=== PATIENT | male | born 1980 | race Caucasian/White ===

== ENCOUNTER 2023-07-12 18:54 | Emergency (ER) | payer BC, SELFPAY ==
[2023-07-12 19:00] VITALS: BP 185/116; PULSE 114; RESP 16; TEMP 36.8; O2SAT 97
--- NOTE | 2023-07-12 19:09 | ECG_ITS ---
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 Measurements Intervals [place] Rate: 102 P: 17 SD: 132 QRS: 109 QRSD: 107 T: 60 QT: 370 QTc: 484 Interpretive Statements SINUS TACHYCARDIA POSSIBLE LEFT ATRIAL ENLARGEMENT [-0.1mV P-WAVE IN V1/V2] RIGHT AXIS DEVIATION [QRS AXIS > 100] INCOMPLETE RIGHT BUNDLE BRANCH BLOCK [90+ ms QRS DURATION, TERMINAL R IN V1/V2, 40+ ms S IN I/aVL/V4/V5/V6] No previous ECG available for comparison Electronically Signed On 07-12-2023 21:47:15 SHIPPING LEAD PERSON by Lexa Mercedes M.D. https://[employer]Catalog Spreesimpson general hospitalInnovegapromedica memorial hospital.[employer]/store/OM/[id number]
[2023-07-12 19:34] LABS: Basophils # 0.1 10^3/uL (0.0-0.1); Basophils % 0.7 %; Eosinophils # 0.1 10^3/uL (0.0-0.8); Eosinophils % 0.6 %; Hematocrit 46.1 % (37-53); Lymphocytes # 3.5 10^3/uL (0.8-4.8); Lymphocytes % 41.4 %; Mean Corpuscular HGB Conc 35.6 g/dL (30-55); Mean Corpuscular Hemoglobin 36.9 pg (27-33); Mean Corpuscular Volume 103.6 fl (82-101); Mean Platelet Volume 10.3 fL (7.4-10.4); Monocytes # 0.7 10^3/uL (0.2-0.9); Monocytes % 8.3 %; Neutrophils # 4.17 10^3/uL (1.8-7.7); Neutrophils % 48.6 %; Nucleated Red Blood Cells % 0 %; Platelet Count 164 10^3/cmm (157-399); Red Blood Count 4.45 10^6/uL (3.85-5.65); Red Cell Distribution Width 11.4 % (12.1-15.1); White Blood Count 8.56 10^3/uL (3.29-11.43)
[2023-07-12 19:44] LABS: Erythrocyte Sedimentation Rate 3 mm/hr (0-10)
[2023-07-12 19:56] LABS: Ketone (Acetest) Serum Negative (Negative)
--- NOTE | 2023-07-12 19:57 | ED_ITS ---
Documented by User: KENNY Hearn 07/13/23 00:10 HPI - Recheck/Abnormal Lab/Rx 2 General: Chief Complaint: Recheck/Abnormal Lab/Rx Stated Complaint: Doc sent high liver enzymes Time Seen by Provider: 07/12/23 19:52 Source: patient and family Mode of arrival: ambulatory Limitations: no limitations History of Present Illness: Patient presents emergency department today for evaluation treatment of concerns for abnormal labs. Patient was seen and evaluated 2 days ago by his primary care doctor with concerns of numbness developing in his toes and fingers. Patient's indicates the patient has not been to a normal doctor in approximately 20 years but, with the development of tingling and numbness, decided to be seen. The primary care doctor obtain labs which the has copies of these labs with her today. Patient had a fasting glucose around 400. He had some elevations in his LFTs as well. There was concerns that his creatinine was low also. Patient reports a significant past history of heavy drinking. Patient reports that about a year ago he cut back his drinking significantly but, still has approximately 4 shots of whiskey daily. Patient is complaining of no pain. He has no abdominal pains and has not had any vomiting. He has had loose stools but reports that has been for quite a while. Patient was also found to have some elevated blood pressure readings at the doctor's office 2 days ago and has elevated blood pressure readings here as well. Patient's states he has amlodipine for his blood pressure from the doctor but, has not taken any. Patient denies chest pains or shortness of breath. He denies headaches, dizziness, or blurry vision. Patient states he is completely asymptomatic other than the tingling in his extremities. Patient reports he stays well-hydrated but has not noticed any increase in his thirst. Patient reports urinating about 4 times a day on average. He does have a significant family history of heart disease and diabetes. Patient is a smoker. Review of Systems 2 General: Reports: 10 or more systems reviewed and unremarkable except in HPI and below Physical Exam 2 Const: COMMON NORMALS: no acute distress, average body habitus, patient oriented x3 and alert HENMT: COMMON NORMALS: normocephalic, atraumatic, hearing grossly normal bilaterally and moist oral mucous membranes HEAD & SCALP: normocephalic and atraumatic Eye: COMMON NORMALS: Equal, round and reactive pupils present, EOMs intact bilaterally and conjunctivae normal CONJUNCTIVA: Yes conjunctivae normal P UPIL: Yes Equal, round and reactive pupils present Neck/C-Spine: COMMON NORMALS: no JVD Lymph: LYMPHATIC: no lymphadenopathy noted Resp: COMMON NORMALS: normal respiratory effort, No retractions and No use of accessory muscles Cardio: COMMON NORMALS: no JVD, regular rate and regular rhythm RATE: r egular rate RHYTHM: regular rhythm GI: OTHER: Normoactive bowel sounds throughout. Patient is nontender to palpation. Abdomen is soft. No epigastric tenderness or right upper quadrant pain. Sanabria's negative. Extremity: COMMON NORMALS: normal to inspection, full ROM and capillary refill normal Neuro: COMMON NORMALS: patient oriented x3 SENSORIUM/ORIENTATION: Yes alert Psych: COMMON NORMALS: mental status grossly normal, cooperative, normal affect, speech normal and activity/motor behavior normal SPEECH: Yes normal speech Skin: NARRATIVE SKIN EXAM: No signs of rash or jaundice. Course 2 Vital Signs: Vital signs: Vital Signs Temperature 98.3 F 07/12/23 19:00 Pulse Rate 94 07/12/23 23:28 Respiratory Rate 16 07/12/23 23:28 Blood Pressure 175/112 07/12/23 20:43 Pulse Oximetry 96 07/12/23 23:28 MDM - Recheck/Abnormal Lab/Rx Medical Decision Making Patient presents to the ER today with concerns of abnormal labs from his primary care office visit 2 days ago. Patient originally presented due to concerns for tingling and numbness in his toes and fingers. I was able to view the patient's labs from 48 hours ago where he was found to have a significantly elevated fasting blood glucose. He did have slightly elevated LFTs at the time but was not overly impressed. No signs of elevated white blood cell count or abnormal hemoglobin. Kidney function did show slightly decreased creatinine from normal but a GFR within normal limits. Repeat labs today showed relatively normal LFTs continued slight decrease in creatinine and elevated GFR. No elevated white blood cell count. Given the patient had significantly elevated blood sugars, I did check a serum ketones which was negative. He did have elevated blood sugars here today but urinalysis revealed only 1+ glucose and negative ketones. Patient's venous blood gas showed blood slightly basic versus ascitic. Patient's alcohol level is less than 10 mg/dL and urine drug screen was negative. Given that I find no specific issues with the patient's pancreas or gallbladder, we did opt to image the abdomen with a CT scan rather than ultrasound. However, CT examination revealed no acute concerns. I did notice that the patient's distal vasculature showed some atherosclerotic disease developed. I did mention this to the patient and his . I asked Dr. Iqbal to reevaluate the patient's lab work and imaging from his ER evaluation today as the overall picture of concerns for a ketoacidotic state or significant diabetic picture are not obvious in his evaluation. Dr. Iqbal agreed that patient has some various unobscured findings and his evaluation today given his reported history and lack of overall symptoms. Still, there appears to be nothing emergent at this time requiring inpatient admission or acute treatment at this time. Dr. Iqbal did mention starting metformin as the patient's A1c was greater than 9. I discussed with the patient and the importance of starting the blood pressure medicine he was already given and the recommendation to try metformin. He indicated he was willing to try but, patient did receive IV contrast here in the emergency department today so patient should not take his first dose until Saturday. He is instructed to call his primary care doctor first thing on Saturday to get a follow-up appointment to discuss his evaluation, lab work, imaging from today. However, patient was given strict return precautions to return to the ER for any new onset vomiting, black or tarry stools, new onset abdominal pain, fevers, diaphoresis, or shaking. Patient verbalized understanding and agreement to treatment plan. Differential Diagnosis Unlikely encounter for medication refill, encounter for wound recheck, encounter for recheck of burn, encounter for removal of sutures or warfarin-induced coagulopathy Lab Data 07/12/23 19:27 07/12/23 19:27 Radiology Impressions Abdomen/Pelvis CT 07/12/23 20:46 IMPRESSION: 1. No bowel obstruction or inflammatory process associated with the bowel. 2. No free air or significant free fluid in the abdomen or pelvis. 3. The appendix images normally. Laboratory Results WBC 8.56 10^3/uL (3.29-11.43) 07/12/23 19: RBC 4.45 10^6/uL (3.85-5.65) 07/12/23 19:27 Hgb 16.40 g/dL (11.27-16.99) 07/12/23 19: Hct 46.1 % (37-53) 07/12/23: MCV 103.6 fl (82-101) H 07/12/23 19: MCH 36.9 pg (27-33) H 07/12/23: MCHC 35.6 g/dL (30-55) 07/12/23: RDW 11.4 % (12.1-15.1) L 07/12/23: Plt Count 164 10^3/cmm (157-399) 07/12/23: MPV 10.3 fL (7.4-10.4) 07/12/23: Neut % (Auto) 48.6 % 07/12/23: Lymph % (Auto) 41.4 % 07/12/23: [place] % (Auto) 8.3 % 07/12/23: Eos % (Auto) 0.6 % 07/12/23: Baso % (Auto) 0.7 % 07/12/23: Neut # (Auto) 4.17 10^3/uL (1.8-7.7) 07/12/23: Lymph # (Auto) 3.5 10^3/uL (0.8-4.8) 07/12/23: [place] # (Auto) 0.7 10^3/uL (0.2-0.9) 07/12/23: Eos # (Auto) 0.1 10^3/uL (0.0-0.8) 07/12/23: Baso # (Auto) 0.1 10^3/uL (0.0-0.1) 07/12/23: Nucleated RBC % (auto) 0 % 07/12/23: Nucleated RBCs # 0.0 /100WBC 07/12/23: ESR 3 mm/hr (0-10) 07/12/23 19: Specimen Type Venous 07/12/23 21:07 Sample Site Not specified 07/12/23 21:07 Morteza Test N/a 07/12/23 21:07 VBG pH 7.52 (7.32-7.42) H 07/12/23 21:07 VBG pCO2 33.7 mmHg (41-51) L 07/12/23 21:07 VBG pO2 32.2 mmHg (25-40) 07/12/23 21:07 VBG HCO3 27.5 mmol/L (24-28) 07/12/23 21:07 VBG Base Excess 5.1 mmol/L (-3.0-3.0) H 07/12/23 21:07 VBG Hematocrit 53.3 % (42-52) H 07/12/23 21:07 O2 Delivery Device None 07/12/23 21:07 FiO2 21.0 % 07/12/23 21:07 Base Brander ID [email or web address] 07/12/23 21:07 Sodium 130 mmol/L (136-145) L 07/12/23 19:27 Potassium 3.4 mmol/L (3.5-5.1) L 07/12/23 19:27 Chloride 88 mmol/L (98-107) L 07/12/23 19:27 Carbon Dioxide 30 mmol/L (22-29) H 07/12/23 19:27 Anion Gap 15.4 (5-19) 07/12/23 19:27 BUN 3 mg/dL (6-20) L 07/12/23 19:27 Creatinine 0.6 mg/dL (0.7-1.2) L 07/12/23 19:27 GFR Calculation 147.0 mL/min (90-130) H 07/12/23 19:27 Glucose 309 mg/dL (65-115) H 07/12/23 19:27 Estimat Average Glucose 226 07/12/23 19:27 Hemoglobin A1c 9.5 % (4.0-6.0) H 07/12/23 19:27 Calculated Osmolality 278 mOsm/kg (285-295) L 07/12/23 19: Calcium 9.2 mg/dL (8.5-10.5) 07/12/23 19: Total Bilirubin 0.8 mg/dL (0.15-1.2) 07/12/23 19:27 AST 44 U/L (0-40) H 07/12/23 19:27 ALT 33 U/L (0-41) 07/12/23 19:27 Alkaline Phosphatase 116 U/L (40-130) 07/12/23 19:27 C-Reactive Protein 3.4 mg/L (0.0-4.9) 07/12/23 19: Total Protein 7.1 g/dL (6.6-8.7) 07/12/23 19: Albumin 4.1 g/dL (3.5-5.2) 07/12/23 19: Globulin 3.0 g/dL (1.3-4.6) 07/12/23 19: Lipase 16 U/L (13-60) 07/12/23 19: TSH 2.11 uIU/mL (0.27-4.20) 07/12/23 19: Urine Color Yellow (Yellow) 07/12/23 22:09 Urine Appearance Clear (CLEAR) 07/12/23 22:09 Urine pH 7 (5-7) 07/12/23 22:09 Ur Specific [place] 1.000 (1.005-1.030) L 07/12/23 22:09 Urine Protein Trace (Negative) 07/12/23 22:09 Urine Glucose (UA) 1+ (Normal) H 07/12/23 22:09 Urine Ketones Negative (Negative) 07/12/23 22:09 Urine Blood Neg (Negative) 07/12/23 22:09 Urine Nitrate Negative (Negative) 07/12/23 22:09 Urine Bilirubin Neg (Negative) 07/12/23 22:09 Urine Urobilinogen Norm mg/dL (Negative) 07/12/23 22:09 Ur Leukocyte Esterase Negative (Negative) 07/12/23 22:09 Urine RBC 0-4 /hpf (0-2) H 07/12/23 22:09 Urine WBC 0-4 /hpf (0-5) H 07/12/23 22:09 Ur Squamous Epith Cells 0-4 /hpf (0-5) H 07/12/23 22:09 Amorphous Sediment Not Reportable 07/12/23 22:09 Urine Bacteria Trace /hpf (NONE) 07/12/23 22:09 Urine Opiates Screen Negative ng/mL (Negative) 07/12/23 22:09 Ur Barbiturates Screen Negative ng/mL (Negative) 07/12/23 22:09 Ur Phencyclidine Scrn Negative ng/mL (Negative) 07/12/23 22:09 Ur Amphetamines Screen Negative ng/mL (Negative) 07/12/23 22:09 U Benzodiazepines Scrn Negative ng/mL (Negative) 07/12/23 22:09 Urine Cocaine Screen Negative ng/mL (Negative) 07/12/23 22:09 U Marijuana (THC) Screen Negative ng/mL (Negative) 07/12/23 22:09 Ethyl Alcohol < 10 mg/dL (0-10) 07/12/23 19:27 Serum Ketones Negative (Negative) 07/12/23 19:27 All radiology interpretation(s) finalized by discharge Discharge Plan Discharge Patient Disposition: Home Clinical Impression: Elevated hemoglobin A1c, Blood glucose elevated Condition: Stable Prescriptions: New metformin 850 mg tablet 850 mg PO DAILY Qty: 14 0RF Discharge Orders: Discharge ED (Routine); Ordered 07/12/23 Ordered By: Maral Campoverde Discharge Diet: Diabetic Discharge Activity: Increase activity as tolerated Patient Instructions: Diabetes and Diet, Type 1 Diabetes in Adults: New Diagnosis (DC), Type 2 Diabetes in Adults: New Diagnosis (DC), Diabetic Neuropathy (ED), Diabetic Hyperglycemia (ED) Activity Restrictions/Additional Instructions: Evaluation today reveals many different things. You do have elevated blood sugar readings but, your urinalysis only shows 1+ glucose and no ketones. Your serum ketones were negative as well. Your liver function tests were almost totally normal and your blood pH is actually more basic than it is acidic. We were going to start you on metformin this evening however, you received IV contrast for your abdominal scan so we recommend starting metformin on Saturday. I have provided you information regarding diabetes and diet, hypoglycemia, neuropathy, and both type I and type 2 diabetes. You need to have follow-up with your primary care doctor soon as possible to continue with the discussion on controlling your blood sugars. If you begin having severe diarrhea, vomiting, fever, abdominal pains, dizziness, episodes of sweating, shaking, or syncope you need to return to the emergency department. Coding Level of Care Code ED Stock Taker for Chg Fwd Documented by User: Ignacio Iqbal, DO 07/13/23 05:53 HPI - Recheck/Abnormal Lab/Rx 2 General: Chief Complaint: Recheck/Abnormal Lab/Rx Stated Complaint: Doc sent high liver enzymes Time Seen by Provider: 07/12/23 19:52 Course 2 Vital Signs: Vital signs: Vital Signs Temperature 98.3 F 07/12/23 19:00 Pulse Rate 94 07/12/23 23:28 Respiratory Rate 16 07/12/23 23:28 Blood Pressure 175/112 07/12/23 20:43 Pulse Oximetry 96 07/12/23 23:28 MDM - Recheck/Abnormal Lab/Rx Medical Decision Making Patient presents to the ER today with concerns of abnormal labs from his primary care office visit 2 days ago. Patient originally presented due to concerns for tingling and numbness in his toes and fingers. I was able to view the patient's labs from 48 hours ago where he was found to have a significantly elevated fasting blood glucose. He did have slightly elevated LFTs at the time but was not overly impressed. No signs of elevated white blood cell count or abnormal hemoglobin. Kidney function did show slightly decreased creatinine from normal but a GFR within normal limits. Repeat labs today showed relatively normal LFTs continued slight decrease in creatinine and elevated GFR. No elevated white blood cell count. Given the patient had significantly elevated blood sugars, I did check a serum ketones which was negative. He did have elevated blood sugars here today but urinalysis revealed only 1+ glucose and negative ketones. Patient's venous blood gas showed blood slightly basic versus ascitic. Patient's alcohol level is less than 10 mg/dL and urine drug screen was negative. Given that I find no specific issues with the patient's pancreas or gallbladder, we did opt to image the abdomen with a CT scan rather than ultrasound. However, CT examination revealed no acute concerns. I did notice that the patient's distal vasculature showed some atherosclerotic disease developed. I did mention this to the patient and his . I asked Dr. Iqbal to reevaluate the patient's lab work and imaging from his ER evaluation today as the overall picture of concerns for a ketoacidotic state or significant diabetic picture are not obvious in his evaluation. Dr. Iqbal agreed that patient has some various unobscured findings and his evaluation today given his reported history and lack of overall symptoms. Still, there appears to be nothing emergent at this time requiring inpatient admission or acute treatment at this time. Dr. Iqbal did mention starting metformin as the patient's A1c was greater than 9. I discussed with the patient and the importance of starting the blood pressure medicine he was already given and the recommendation to try metformin. He indicated he was willing to try but, patient did receive IV contrast here in the emergency department today so patient should not take his first dose until Saturday. He is instructed to call his primary care doctor first thing on Saturday to get a follow-up appointment to discuss his evaluation, lab work, imaging from today. However, patient was given strict return precautions to return to the ER for any new onset vomiting, black or tarry stools, new onset abdominal pain, fevers, diaphoresis, or shaking. Patient verbalized understanding and agreement to treatment plan. This patient was originally seen by Mrs. Gilles PA-C.? I agree with her history, evaluation, and treatment. Lab Data 07/12/23 19:07/12/23 19: Radiology Impressions Abdomen/Pelvis CT 07/12/23 20:46 IMPRESSION: 1. No bowel obstruction or inflammatory process associated with the bowel. 2. No free air or significant free fluid in the abdomen or pelvis. 3. The appendix images normally. Laboratory Results WBC 8.56 10^3/uL (3.29-11.43) 07/12/23: RBC 4.45 10^6/uL (3.85-5.65) 07/12/23 19: Hgb 16.40 g/dL (11.27-16.99) 07/12/23: Hct 46.1 % (37-53) 07/12/23: MCV 103.6 fl (82-101) H 07/12/23: MCH 36.9 pg (27-33) H 07/12/23: MCHC 35.6 g/dL (30-55) 07/12/23: RDW 11.4 % (12.1-15.1) L 07/12/23: Plt Count 164 10^3/cmm (157-399) 07/12/23: MPV 10.3 fL (7.4-10.4) 07/12/23: Neut % (Auto) 48.6 % 07/12/23 19:27 Lymph % (Auto) 41.4 % 07/12/23 19:27 [place] % (Auto) 8.3 % 07/12/23 19:27 Eos % (Auto) 0.6 % 07/12/23 19:27 Baso % (Auto) 0.7 % 07/12/23 19:27 Neut # (Auto) 4.17 10^3/uL (1.8-7.7) 07/12/23 19:27 Lymph # (Auto) 3.5 10^3/uL (0.8-4.8) 07/12/23 19:27 [place] # (Auto) 0.7 10^3/uL (0.2-0.9) 07/12/23 19: Eos # (Auto) 0.1 10^3/uL (0.0-0.8) 07/12/23 19: Baso # (Auto) 0.1 10^3/uL (0.0-0.1) 07/12/23 19: Nucleated RBC % (auto) 0 % 07/12/23 19: Nucleated RBCs # 0.0 /100WBC 07/12/23 19: ESR 3 mm/hr (0-10) 07/12/23 19: Specimen Type Venous 07/12/23 21:07 Sample Site Not specified 07/12/23 21:07 Morteza Test N/a 07/12/23 21:07 VBG pH 7.52 (7.32-7.42) H 07/12/23 21:07 VBG pCO2 33.7 mmHg (41-51) L 07/12/23 21:07 VBG pO2 32.2 mmHg (25-40) 07/12/23 21:07 VBG HCO3 27.5 mmol/L (24-28) 07/12/23 21:07 VBG Base Excess 5.1 mmol/L (-3.0-3.0) H 07/12/23 21:07 VBG Hematocrit 53.3 % (42-52) H 07/12/23 21:07 O2 Delivery Device None 07/12/23 21:07 FiO2 21.0 % 07/12/23 21:07 Base Brander ID [email or web address] 07/12/23 21:07 Sodium 130 mmol/L (136-145) L 07/12/23 19: Potassium 3.4 mmol/L (3.5-5.1) L 07/12/23 19: Chloride 88 mmol/L (98-107) L 07/12/23 19: Carbon Dioxide 30 mmol/L (22-29) H 07/12/23 19: Anion Gap 15.4 (5-19) 07/12/23 19: BUN 3 mg/dL (6-20) L 07/12/23 19: Creatinine 0.6 mg/dL (0.7-1.2) L 07/12/23 19: GFR Calculation 147.0 mL/min (90-130) H 07/12/23: Glucose 309 mg/dL (65-115) H 07/12/23: Estimat Average Glucose 226 07/12/23 19: Hemoglobin A1c 9.5 % (4.0-6.0) H 07/12/23: Calculated Osmolality 278 mOsm/kg (285-295) L 07/12/23 19: Calcium 9.2 mg/dL (8.5-10.5) 07/12/23: Total Bilirubin 0.8 mg/dL (0.15-1.2) 07/12/23: AST 44 U/L (0-40) H 07/12/23 19: ALT 33 U/L (0-41) 07/12/23 19: Alkaline Phosphatase 116 U/L (40-130) 07/12/23 19: C-Reactive Protein 3.4 mg/L (0.0-4.9) 07/12/23 19: Total Protein 7.1 g/dL (6.6-8.7) 07/12/23: Albumin 4.1 g/dL (3.5-5.2) 07/12/23 19: Globulin 3.0 g/dL (1.3-4.6) 07/12/23 19: Lipase 16 U/L (13-60) 07/12/23 19: TSH 2.11 uIU/mL (0.27-4.20) 07/12/23 19: Urine Color Yellow (Yellow) 07/12/23 22:09 Urine Appearance Clear (CLEAR) 07/12/23 22:09 Urine pH 7 (5-7) 07/12/23 22:09 Ur Specific [place] 1.000 (1.005-1.030) L 07/12/23 22:09 Urine Protein Trace (Negative) 07/12/23 22:09 Urine Glucose (UA) 1+ (Normal) H 07/12/23 22:09 Urine Ketones Negative (Negative) 07/12/23 22:09 Urine Blood Neg (Negative) 07/12/23 22:09 Urine Nitrate Negative (Negative) 07/12/23 22:09 Urine Bilirubin Neg (Negative) 07/12/23 22:09 Urine Urobilinogen Norm mg/dL (Negative) 07/12/23 22:09 Ur Leukocyte Esterase Negative (Negative) 07/12/23 22:09 Urine RBC 0-4 /hpf (0-2) H 07/12/23 22:09 Urine WBC 0-4 /hpf (0-5) H 07/12/23 22:09 Ur Squamous Epith Cells 0-4 /hpf (0-5) H 07/12/23 22:09 Amorphous Sediment Not Reportable 07/12/23 22:09 Urine Bacteria Trace /hpf (NONE) 07/12/23 22:09 Urine Opiates Screen Negative ng/mL (Negative) 07/12/23 22:09 Ur Barbiturates Screen Negative ng/mL (Negative) 07/12/23 22:09 Ur Phencyclidine Scrn Negative ng/mL (Negative) 07/12/23 22:09 Ur Amphetamines Screen Negative ng/mL (Negative) 07/12/23 22:09 U Benzodiazepines Scrn Negative ng/mL (Negative) 07/12/23 22:09 Urine Cocaine Screen Negative ng/mL (Negative) 07/12/23 22:09 U Marijuana (THC) Screen Negative ng/mL (Negative) 07/12/23 22:09 Ethyl Alcohol < 10 mg/dL (0-10) 07/12/23 19:27 Serum Ketones Negative (Negative) 07/12/23 19:27 Discharge Plan Discharge Patient Disposition: Home Clinical Impression: Elevated hemoglobin A1c, Blood glucose elevated Condition: Stable Prescriptions: New metformin 850 mg tablet 850 mg PO DAILY Qty: 14 0RF Discharge Orders: Discharge ED (Routine); Ordered 07/12/23 Ordered By: Maral Campoverde Discharge Diet: Diabetic Discharge Activity: Increase activity as tolerated Patient Instructions: Diabetes and Diet, Type 1 Diabetes in Adults: New Diagnosis (DC), Type 2 Diabetes in Adults: New Diagnosis (DC), Diabetic Neuropathy (ED), Diabetic Hyperglycemia (ED) Activity Restrictions/Additional Instructions: Evaluation today reveals many different things. You do have elevated blood sugar readings but, your urinalysis only shows 1+ glucose and no ketones. Your serum ketones were negative as well. Your liver function tests were almost totally normal and your blood pH is actually more basic than it is acidic. We were going to start you on metformin this evening however, you received IV contrast for your abdominal scan so we recommend starting metformin on Saturday. I have provided you information regarding diabetes and diet, hypoglycemia, neuropathy, and both type I and type 2 diabetes. You need to have follow-up with your primary care doctor soon as possible to continue with the discussion on controlling your blood sugars. If you begin having severe diarrhea, vomiting, fever, abdominal pains, dizziness, episodes of sweating, shaking, or syncope you need to return to the emergency department. Coding Level of Care Code ED Stock Taker for Nika Ovalles
[2023-07-12 20:05] LABS: Alanine Aminotransferase 33 U/L (0-41); Albumin Level 4.1 g/dL (3.5-5.2); Alkaline Phosphatase 116 U/L (40-130); Anion Gap 15.4 (5-19); Aspartate Amino Transferase 44 U/L (0-40); Blood Urea Nitrogen 3 mg/dL (6-20); C Reactive Protein 3.4 mg/L (0.0-4.9); Calcium 9.2 mg/dL (8.5-10.5); Carbon Dioxide 30 mmol/L (22-29); Chloride 88 mmol/L (98-107); Glucose 309 mg/dL (65-115); Lipase 16 U/L (13-60); Osmolality Calculated 278 mOsm/kg (285-295); Potassium 3.4 mmol/L (3.5-5.1); Sodium 130 mmol/L (136-145); Thyroid Stimulating Hormone 2.11 uIU/mL (0.27-4.20); Total Bilirubin 0.8 mg/dL (0.15-1.2); Total Protein 7.1 g/dL (6.6-8.7)
[2023-07-12 20:11] LABS: Alcohol Level < 10 mg/dL (0-10)
[2023-07-12 20:43] VITALS: BP 175/112; PULSE 103; RESP 16; O2SAT 96
--- NOTE | 2023-07-12 20:46 | CTR_ITS ---
PROCEDURE INFORMATION: Exam: CT Abdomen And Pelvis With Contrast Exam date and time: 07/12/2023 9:05 PM Age: 43 years old Clinical indication: Abnormal findings; Abnormal lab test; Patient HX: Elevated liver enzymes. ; Additional info: High fasting blood sugars, lipase, lfts and ketones wnl TECHNIQUE: Imaging protocol: Computed tomography of the abdomen and pelvis with contrast. Radiation optimization: All CT scans at this facility use at least one of these dose optimization techniques: automated exposure control; mA and/or kV adjustment per patient size (includes targeted exams where dose is matched to clinical indication); or iterative reconstruction. Contrast material: OMNI 350; Contrast volume: 100 ml; Contrast route: INTRAVENOUS (IV); COMPARISON: No relevant prior studies available. RADIATION DOSE METRICS: Total DLP (mGy-cm): 424.5 FINDINGS: Liver: Normal. No mass. Gallbladder and bile ducts: Normal. No calcified stones. No ductal dilation. Pancreas: Normal. No ductal dilation. Spleen: Normal. No splenomegaly. Adrenal glands: Normal. No mass. Kidneys and ureters: Normal. No hydronephrosis. Stomach and bowel: Unremarkable. No obstruction. No mucosal thickening. Appendix: No evidence of appendicitis. Intraperitoneal space: Unremarkable. No free air. No significant fluid collection. Vasculature: Severe atherosclerotic disease abdominal aorta and proximal iliac arteries. Bilateral pars defects at L5 with grade 2 anterolisthesis of L5 on S1. Lymph nodes: Unremarkable. No enlarged lymph nodes. Urinary bladder: Unremarkable as visualized. Reproductive: Unremarkable as visualized. Bones/joints: See Vasculature finding. Soft tissues: Unremarkable. CT/CT abdomen pelvis w con* [id number] IMPRESSION: 1. No bowel obstruction or inflammatory process associated with the bowel. 2. No free air or significant free fluid in the abdomen or pelvis. 3. The appendix images normally.
[2023-07-12] MEDS: iohexol 350 mg/mL 500 mL Btl (per mL) IV (21:07)
[2023-07-12 21:19] LABS: Base Excess VBG 5.1 mmol/L (-3.0-3.0); Blood Gas Sample Site Not specified; Blood Gas Sample Type Venous; HCO3 VBG 27.5 mmol/L (24-28); PCO2 VBG 33.7 mmHg (41-51); PO2 VBG 32.2 mmHg (25-40); Venous Blood Gas Hematocrit 53.3 % (42-52); pH VBG 7.52 (7.32-7.42)
[2023-07-12 22:34] LABS: Estmated Average Glucose 226; Hemoglobin A1C 9.5 % (4.0-6.0)
[2023-07-12 22:40] LABS: Amphetamines Screen Urine Negative (Negative); Barbiturates Screen Urine Negative (Negative); Benzodiazepines Screen Urine Negative (Negative); Cocaine Screen Urine Negative (Negative); Opiate Screen Urine Negative (Negative); PCP Screen Urine Negative (Negative); THC Screen Urine Negative (Negative)
[2023-07-12 22:46] LABS: Add Urine Microscopic? YES
[2023-07-12 22:47] LABS: Bacteria Urine TRACE /hpf; Bilirubin Urine Neg (Negative); Blood Urine Neg (Negative); Glucose Urine UA 1+ (Normal); Ketones Urine Negative (Negative); Leukocyte Esterase Urine Negative (Negative); Nitrate Urine Negative (Negative); Protein Urine Trace (Negative); RBC Urine 0-4 /hpf (0-2); Squamous Epithelial Cell Urine 0-4 /hpf (0-5); Urine Appearance Clear (CLEAR); Urine Color Yellow (Yellow); Urobilinogen Urine Norm (Negative); WBC Urine 0-4 /hpf (0-5); pH Urine 7 (5-7)
[2023-07-12 23:28] VITALS: PULSE 94; RESP 16; O2SAT 96
== END 2023-07-12 23:24 | disposition home or self-care (01) ==
PROVIDERS: Emergency Provider Physician Assistant; PCP Nurse Practitioner
DX: R73.9 Hyperglycemia, unspecified (principal); R73.09 Other abnormal glucose
CPT/HCPCS: 36415; 74177; 80053; 80306; 80307; 81001; 82009; 82803; 83036; 83690; 84443; 85025; 85651; 86140; 93005; 99285; Q9967

== ENCOUNTER 2023-11-17 23:24 | Emergency (ER) | payer BC, SELFPAY ==
[2023-11-17 23:49] VITALS: BP 122/77; PULSE 86; RESP 17; TEMP 36.6; O2SAT 98; BMI 21.2
--- NOTE | 2023-11-18 00:38 | USR_ITS ---
PROCEDURE INFORMATION: Exam: US Duplex Bilateral Lower Extremity Arteries Exam date and time: 11/18/2023 1:02 AM Age: 43 years old Clinical indication: Pain; Leg, lower; Bilateral; Additional info: Cold legs, decreased sensation, pain TECHNIQUE: Imaging protocol: Real-time ultrasound scan of the arteries of the bilateral lower extremities with 2-D conde scale, color Doppler flow and spectral waveform analysis. Images documented and saved. COMPARISON: CT abdomen pelvis w con* [id number] 07/12/2023 9:05 PM FINDINGS: Right common femoral artery: No occlusion or significant stenosis. Normal waveform. Right superficial femoral artery: No occlusion or significant stenosis. Normal waveform. Right popliteal artery: 2-1 velocity drop between the right popliteal artery and dorsalis pedis artery consistent with 50% stenosis. Right calf/foot arteries: Right IRVIN 0.37 consistent with severe right lower extremity peripheral vascular disease in the ischemic. Left common femoral artery: No occlusion or significant stenosis. Normal waveform. Left superficial femoral artery: Left IRVIN 0.35 consistent with severe left lower extremity peripheral vascular disease in the ischemic zone. Left popliteal artery: No occlusion or significant stenosis. Normal waveform. Left calf/foot arteries: No occlusion or significant stenosis in the visualized arteries. Normal waveforms. Dorsalis pedis artery is patent. Other arteries: Monophasic flow throughout both lower extremities. Other findings: Probable significant stenosis or occlusion in the arterial system proximal to, femoral arteries. CTA abdomen pelvis with runoff with delayed images may be helpful for complete evaluation. US/[place] [id number] IMPRESSION: 1. Monophasic flow throughout both lower extremities. 2. Right IRVIN 0.37 consistent with severe right lower extremity peripheral vascular disease in the ischemic. 3. Left IRVIN 0.35 consistent with severe left lower extremity peripheral vascular disease in the ischemic zone. 4. 2-1 velocity drop between the right popliteal artery and dorsalis pedis artery consistent with 50% stenosis. 5. Probable significant stenosis or occlusion in the arterial system proximal to, femoral arteries. CTA abdomen pelvis with runoff with delayed images may be helpful for complete evaluation.
[2023-11-18 01:01] LABS: Erythrocyte Sedimentation Rate 14 mm/hr (0-10)
[2023-11-18 01:02] LABS: Basophils # 0.1 10^3/uL (0.0-0.1); Basophils % 0.5 %; Eosinophils # 0.1 10^3/uL (0.0-0.8); Eosinophils % 0.6 %; Hematocrit 41.9 % (37-53); Lymphocytes # 3.3 10^3/uL (0.8-4.8); Mean Corpuscular HGB Conc 34.4 g/dL (30-55); Mean Corpuscular Hemoglobin 33.7 pg (27-33); Mean Corpuscular Volume 98.1 fl (82-101); Mean Platelet Volume 10.5 fL (7.4-10.4); Monocytes # 0.8 10^3/uL (0.2-0.9); Monocytes % 7.3 %; Neutrophils # 6.72 10^3/uL (1.8-7.7); Neutrophils % 61.1 %; Nucleated Red Blood Cells % 0 %; Platelet Count 165 10^3/cmm (157-399); Red Blood Count 4.27 10^6/uL (3.85-5.65); White Blood Count 11.02 10^3/uL (3.29-11.43)
[2023-11-18 01:14] LABS: Lactic Sepsis W/Reflex 0.9 mmol/L (0.5-2.2)
[2023-11-18 01:15] LABS: Alanine Aminotransferase 12 U/L (0-41); Albumin Level 4.1 g/dL (3.5-5.2); Alkaline Phosphatase 81 U/L (40-130); Anion Gap 16.2 (5-19); Aspartate Amino Transferase 13 U/L (0-40); Blood Urea Nitrogen 10 mg/dL (6-20); Calcium 9.3 mg/dL (8.5-10.5); Carbon Dioxide 23 mmol/L (22-29); Chloride 105 mmol/L (98-107); Creatine Phosphokinase 137 U/L (39-308); Creatinine Clr Calc Pharmacy 111.8888; Globulin 2.8 g/dL (1.3-4.6); Glomerular Filtration Rate 105.5 mL/min (90-130); Glucose 104 mg/dL (65-115); Osmolality Calculated 289 mOsm/kg (285-295); Potassium 4.2 mmol/L (3.5-5.1); Sodium 140 mmol/L (136-145); Total Bilirubin 0.2 mg/dL (0.15-1.2); Total Protein 6.9 g/dL (6.6-8.7)
--- NOTE | 2023-11-18 02:45 | CTR_ITS ---
PROCEDURE INFORMATION: Exam: CTA Abdominal Aorta and Bilateral Lower Extremities (Run-off) With Contrast Exam date and time: 11/18/2023 3:02 AM Age: 43 years old Clinical indication: Lower extremity; Patient HX: C/O numbness to bilateral lower extremities. Cold to touch. Lilliam 0.35 and 0.37. History of abdominal aortic atherosclerosis. ; Additional info: Cold painful le with lilliam 0.35 and 0.37 TECHNIQUE: Imaging protocol: Computed tomographic angiography of the of the abdominal aorta, pelvis and bilateral lower extremities with contrast. 3D rendering (Not supervised by radiologist): MIP and/or 3D reconstructed images were created by the technologist. Radiation optimization: All CT scans at this facility use at least one of these dose optimization techniques: automated exposure control; mA and/or kV adjustment per patient size (includes targeted exams where dose is matched to clinical indication); or iterative reconstruction. Contrast material: OMNI 350; Contrast volume: 100 ml; Contrast route: INTRAVENOUS (IV); COMPARISON: CT abdomen pelvis w con* [id number] 07/12/2023 9:05 PM RADIATION DOSE METRICS: Total DLP (mGy-cm): 640.86 FINDINGS: Aorta: Occlusion of the distal abdominal aorta for approximately 2 cm in length starting just below the level of the EUGENE extending to the aortic bifurcation. Celiac trunk and mesenteric arteries: No occlusion or significant stenosis. Renal arteries: No occlusion or significant stenosis. Right iliac arteries: Short segment severe stenosis at the origin of the right common iliac artery. Right femoral/popliteal arteries: Multifocal mild stenosis in the right SFA. Right infrapopliteal arteries: Prominent calcification likely causing stenosis in the proximal right anterior tibial artery. The right anterior tibial artery is patent until the level of distal leg above the ankle joint with no significant distal contrast opacification is identified. Similarly, the peroneal artery is patent until the distal leg. The right posterior tibial artery is the dominant runoff of the right lower extremity and is patent below the level of the ankle joint into the foot. Left iliac arteries: Short segment severe stenosis of the origin of the left common iliac artery. Mild stenosis in the left external iliac artery. Left femoral/popliteal arteries: Multifocal mild stenosis in the left SFA. Multifocal mild stenosis in the left popliteal artery. Left infrapopliteal arteries: Prominent calcification in the proximal left anterior tibial artery likely causing stenosis. The left anterior tibial artery is not well opacified with contrast in the distal leg. The left peroneal artery is not well opacified with contrast in the distal leg. The left posterior tibial artery is the primary runoff of the left lower extremity. And is patent below the level of the ankle joint into the foot. Lungs: Calcified granuloma in the posterior basal segment of the left lower lobe. Liver: The liver is normal in size and contour. Gallbladder and bile ducts: The gallbladder is collapsed and appears unremarkable. Pancreas: The pancreas appears normal. Spleen: The spleen appears normal. Adrenal glands: Normal. No mass. Kidneys and ureters: The kidneys enhance symmetrically and empty into non-dilated ureters. Stomach and bowel: The stomach appears unremarkable. Focal segment of abnormally dilated small bowel versus diverticula in the right lower quadrant measuring up to 3.5 cm in diameter along the anterior superior margin of the urinary bladder (axial series 5, image 317). The remainder of the small bowel appears unremarkable. The large bowel loops are not abnormally dilated. Appendix: The appendix appears normal. The appendix appears normal. Urinary bladder: Unremarkable. No mass. Reproductive: Unremarkable as visualized. Intraperitoneal space: No ascites. No significant fluid collection. Lymph nodes: No abdominal or pelvic lymphadenopathy. Bones/joints: Unremarkable. Soft tissues: Unremarkable. CT/CT angio abd aorta runof [id number] IMPRESSION: 1. Occlusion of the distal abdominal aorta for approximately 2 cm in length starting just below the level of the EUGENE extending to the aortic bifurcation. 2. The right posterior tibial artery is the primary runoff in the right lower extremity. 3. The left posterior tibial artery is the primary runoff in the left lower extremity. 4. Focal segment of abnormally dilated small bowel versus diverticula in the right lower quadrant measuring up to 3.5 cm in diameter along the anterior superior margin of the urinary bladder (axial series 5, image 317). The remainder of the small bowel is unremarkable.
--- NOTE | 2023-11-18 03:02 | ED_ITS ---
HPI - Extremity Problem 2 General: Chief complaint: Extremity Problem,Nontraumatic Stated complaint: legs cold to touch minimal feeling Time Seen by Provider: 11/17/23 23:56 History of Present Illness: 43-year-old diabetic hypertensive male. He presents with bilateral lower extremity coldness, pain, and decreased sensation. He notes that he had decreased sensation in his lower extremities for quite some time, and suspicion was that it is due to diabetic neuropathy. He had a prior CAT scan at this facility showing some atherosclerosis of pelvic vessels, and has been placed on pentoxifylline because of this as well. Yesterday the patient was at work, and noted that his legs felt more cool than usual. He also had more pain than usual. When he rested, and the pain did not recover as it usually does, this concerned him. He presents for evaluation of this. He denies any fever. There were no leg wounds. Associated symptoms: Deny chest pain or fever(s) Review of Systems 2 Const: Denies: fever(s), chills or body aches Card: Denies: chest pain, palpitations or irregular heart rhythm Resp: Denies: dyspnea, productive cough or non-productive cough Physical Exam 2 Const: COMMON NORMALS: no acute distress GENERAL APPEARANCE: cooperative; not frail appearing HENMT: COMMON NORMALS: normocephalic, atraumatic and Normal external nose present HEAD & SCALP: normocephalic and atraumatic FACE & SINUS: normal facial exam and face symmetric NOSE: Normal external nose present Eye: COMMON NORMALS: Equal, round and reactive pupils present and EOMs intact bilaterally PUPIL: Yes Equal, round and reactive pupils present Neck/C-Spine: GENERAL: Yes trachea midline Chest: CHEST: Yes Symmetrical chest wall rise Resp: COMMON NORMALS: normal respiratory effort, No retractions, No use of accessory muscles and clear to auscultation bilaterally AUSCULTATION: clear to auscultation bilaterally Cardio: COMMON NORMALS: regular rate and regular rhythm RATE: regular rate RHYTHM: regular rhythm PERIPHERAL PULSES: posterior tibial pulses not present and dorsalis pedis pulses not present GI: COMMON NORMALS: Normal to inspection, nondistended, normoactive bowel sounds present Extremity: COMMON NORMALS: no pedal edema NARRATIVE EXTREMITY EXAM: Bilaterally, the lower extremities are cool to the touch, particularly below the knee. No ulcerations or wounds. Pulses are nonpalpable. Generalized decreased sensation is present. The legs are not insensate. Neuro: TAMANNA COMA SCALE: document GCS findings Tamanna coma scale eye opening: Spontaneous Fontana coma scale verbal response: Orientated Tamanna coma scale motor response: Obey commands Fontana coma scale total score: 15 S ENSORY EXAM: Yes extremities (intact) Psych: COMMON NORMALS: speech normal SPEECH: Yes normal speech Skin: NARRATIVE SKIN EXAM: See extremities portion Course 2 Consultations: Consultation #1: Paras [email or web address]. Vascular Sx [facility] Vital Signs: Vital signs: Vital Signs Temperature 97.9 F 11/17/23 23:49 Pulse Rate 88 11/18/23 03:53 Respiratory Rate 18 11/18/23 03:53 Blood Pressure 130/71 11/18/23 03:53 Pulse Oximetry 98 11/18/23 03:53 Oxygen Delivery Me thod Room Air 11/18/23 03:53 MDM - Extremity (Nontraumatic) Medical Decision Making This patient has ABIs of 0.35 on the left, 0.37 on the right. His extremities are cool to touch. He has decreased sensation below the knees bilaterally. He has monophasic flow to the ankles. His laboratory indices are not terribly remarkable. His ESR is only 14. He is afebrile. He does not have skin wounds. He does, however, have rest ischemia with cool legs that are decreased in sensation. CTA has been ordered. No change in patient's symptoms. CTA shows occlusion of the distal abdominal aorta approximately 2 cm in length starting just below the level of the EUGENE extending to the aortic bifurcation. Heparin drip started. We do not have vascular surgery at this facility. Spoke with vascular surgery on-call at [facility] in [place]. She agrees the patient needs to come. He will go to the ER, and as this is a limb threat with potential for life threat, we will expedite transfer using her transport if needed. Lab Data 11/18/23 00:47 11/18/23 00:47 Radiology Impressions Duplex Scan Lower Extremity Artery 11/18/23 00:38 IMPRESSION: 1. Monophasic flow throughout both lower extremities. 2. Right IRVIN 0.37 consistent with severe right lower extremity peripheral vascular disease in the ischemic. 3. Left IRVIN 0.35 consistent with severe left lower extremity peripheral vascular disease in the ischemic zone. 4. 2-1 velocity drop between the right popliteal artery and dorsalis pedis artery consistent with 50% stenosis. 5. Probable significant stenosis or occlusion in the arterial system proximal to, femoral arteries. CTA abdomen pelvis with runoff with delayed images may be helpful for complete evaluation. ADDENDUM: 11/18/239 THIS REPORT CONTAINS FINDINGS THAT MAY BE CRITICAL TO PATIENT CARE. The findings were verbally communicated via telephone conference with DEANNE RIVAS at 3:17 AM CDT on 11/18/2023. The findings were acknowledged and understood. Aorta w/Runoff CTA 11/18/23 02:45 IMPRESSION: 1. Occlusion of the distal abdominal aorta for approximately 2 cm in length starting just below the level of the EUGENE extending to the aortic bifurcation. 2. The right posterior tibial artery is the primary runoff in the right lower extremity. 3. The left posterior tibial artery is the primary runoff in the left lower extremity. 4. Focal segment of abnormally dilated small bowel versus diverticula in the right lower quadrant measuring up to 3.5 cm in diameter along the anterior superior margin of the urinary bladder (axial series 5, image 317). The remainder of the small bowel is unremarkable. ADDENDUM: 11/18/23 0444 Bilateral pars defects at L5. Grade 2 anterolisthesis of L5 on S1. Laboratory Results WBC 11.02 10^3/uL (3.29-11.43) 11/18/23 00:47 RBC 4.27 10^6/uL (3.85-5.65) 11/18/23 00:47 Hgb 14.40 g/dL (11.27-16.99) 11/18/23 00:47 Hct 41.9 % (37-53) 11/18/23 00:47 MCV 98.1 fl (82-101) 11/18/23 00:47 MCH 33.7 pg (27-33) H 11/18/23 00:47 MCHC 34.4 g/dL (30-55) 11/18/23 00:47 RDW 12.0 % (12.1-15.1) L 11/18/23 00:47 Plt Count 165 10^3/cmm (157-399) 11/18/23 00:47 MPV 10.5 fL (7.4-10.4) H 06/03/24 00:47 Neut % (Auto) 61.1 % 11/18/23 00:47 Lymph % (Auto) 30.0 % 11/18/23 00:47 Divide % (Auto) 7.3 % 11/18/23 00:47 Eos % (Auto) 0.6 % 11/18/23 00:47 Baso % (Auto) 0.5 % 11/18/23 00:47 Neut # (Auto) 6.72 10^3/uL (1.8-7.7) 11/18/23 00:47 Lymph # (Auto) 3.3 10^3/uL (0.8-4.8) 11/18/23 00:47 Divide # (Auto) 0.8 10^3/uL (0.2-0.9) 11/18/23 00:47 Eos # (Auto) 0.1 10^3/uL (0.0-0.8) 11/18/23 00:47 Baso # (Auto) 0.1 10^3/uL (0.0-0.1) 11/18/23 00:47 Nucleated RBC % (auto) 0 % 11/18/23 00:47 Nucleated RBCs # 0.0 /100WBC 11/18/23 00:47 ESR 14 mm/hr (0-10) H 11/18/23 00:47 Sodium 140 mmol/L (136-145) 11/18/23 00:47 Potassium 4.2 mmol/L (3.5-5.1) 11/18/23 00:47 Chloride 105 mmol/L (98-107) 11/18/23 00:47 Carbon Dioxide 23 mmol/L (22-29) 11/18/23 00:47 Anion Gap 16.2 (5-19) 11/18/23 00:47 BUN 10 mg/dL (6-20) 11/18/23 00:47 Creatinine 0.8 mg/dL (0.7-1.2) 11/18/23 00:47 GFR Calculation 105.5 mL/min (90-130) 11/18/23 00:47 Glucose 104 mg/dL (65-115) 11/18/23 00:47 Calculated Osmolality 289 mOsm/kg (285-295) 11/18/23 00:47 Lactic Acid 0.9 mmol/L (0.5-2.2) 11/18/23 00:47 Calcium 9.3 mg/dL (8.5-10.5) 11/18/23 00:47 Total Bilirubin 0.2 mg/dL (0.15-1.2) 11/18/23 00:47 AST 13 U/L (0-40) 11/18/23 00:47 ALT 12 U/L (0-41) 11/18/23 00:47 Alkaline Phosphatase 81 U/L (40-130) 11/18/23 00:47 Creatine Kinase 137 U/L (39-308) 11/18/23 00:47 C-Reactive Protein 3.0 mg/L (0.0-4.9) 11/18/23 00:47 Total Protein 6.9 g/dL (6.6-8.7) 11/18/23 00:47 Albumin 4.1 g/dL (3.5-5.2) 11/18/23 00:47 Globulin 2.8 g/dL (1.3-4.6) 11/18/23 00:47 All radiology interpretation(s) finalized by discharge Critical Care Time 2 Critical Care Time: Critical Care Time: Yes Total Critical Care Time: 55 Attestation: This case had a high probability of a clinically significant, sudden, or life threatening deterioration of this patient's condition which required my full and direct attention, intervention and personal management. Time is independent of any procedures performed. Discharge Plan Discharge Patient Disposition: Xfer Short-Term Hosp Clinical Impression: Aortic occlusion Condition: Serious Prescriptions: No Action metformin 850 mg tablet 850 mg PO DAILY Qty: 14 0RF Referrals: Ivana Salamanca FNP [Primary Care Provider] - Coding Level of Care Code ED Waiter/Waitress [place] for Nika Ovalles
[2023-11-18] MEDS: iohexol 350 mg/mL 500 mL Btl (per mL) IV (03:04)
[2023-11-18 03:53] VITALS: BP 130/71; PULSE 88; RESP 18; O2SAT 98
[2023-11-18] MEDS: heparin 5,000 unit/mL INJ 1 mL IV (04:39)
[2023-11-18] MEDS: heparin drip 25,000 UNIT/500 ML PREMIX 17.7800000000000011 UNIT IV (04:41)
[2023-11-18 05:10] VITALS: BP 131/73; PULSE 86; RESP 18; O2SAT 97
== END 2023-11-18 05:58 | disposition short-term general hospital (02) ==
PROVIDERS: Emergency Provider Emergency Medicine; PCP Nurse Practitioner
DX: I74.09 Other arterial embolism and thrombosis of abdominal aorta (principal); Z79.84 Long term (current) use of oral hypoglycemic drugs
CPT/HCPCS: 75635; 80053; 82550; 83605; 85025; 85651; 86140; 93925; 96374; 99285; J1644; Q9967